=== PATIENT | female | born 1965 | race Caucasian/White ===

== ENCOUNTER 2019-12-05 10:27 | Emergency (ER) | payer BC ==
[~2019-12-05] VITALS: Ht 167.6 cm; Wt 78.0 kg
[2019-12-05] MEDS ORDERED: DEPRESSION MED (10:36)
[2019-12-05] MEDS ORDERED: VENLAFAXINE HCL25 MG PO (10:36)
[2019-12-05] MEDS ORDERED: SEROQUEL XR1 EACH PO (10:36)
[2019-12-05] MEDS ORDERED: ZPAK PO (12:15)
[2019-12-05] MEDS ORDERED: ONDANSETRON HCL4 M2 PO (12:15)
[2019-12-05] MEDS ORDERED: VENTOLIN HFA 1818 GM INH (12:15)
[2019-12-05 13:49] VITALS: BP 114/76
== END 2019-12-05 12:40 | disposition home or self-care (01) ==
LOC: M.ERS 10:27
DX: U07.1 COVID-19 (principal); Z88.8 Allergy status to other drugs, medicaments and biological substances